=== PATIENT | male | born 1980 | race Caucasian/White ===

== ENCOUNTER 2022-12-05 22:31 | Emergency (ER) | payer MEDICAID ==
[~2022-12-05] VITALS: Ht 170.2 cm; Wt 74.0 kg
[2022-12-05 22:40] VITALS: BP 151/107
[2022-12-05] MEDS ORDERED: sulfamethoxazole/trimethoprim DS (800/160mg) tablet PO ONE (23:30)
[2022-12-05] MEDS ORDERED: SULF1TAB49 PO (23:33)
== END 2022-12-05 23:41 | disposition home or self-care (01) ==
LOC: ER 22:31
DX: L03.313 Cellulitis of chest wall (principal); R53.1 Weakness
CPT/HCPCS: 99283

== ENCOUNTER 2024-09-27 20:33 | Emergency (ER) | payer MEDICAID ==
[~2024-09-27] VITALS: Ht 172.7 cm; Wt 77.2 kg
[2024-09-27 20:39] VITALS: BP 149/91; PULSE 73; RESP 15; TEMP 98.2; O2SAT 100
== END 2024-09-27 22:36 | disposition left against medical advice (07) ==
LOC: ER 20:34
DX: H53.9 Unspecified visual disturbance (principal); R53.1 Weakness; Z53.21 Procedure and treatment not carried out due to patient leaving prior to being seen by health care provider